=== PATIENT | male | born 1965 | race African-American/Black ===

== ENCOUNTER 2016-07-08 01:06 | Emergency (ER) | payer SELFPAY ==
[~2016-07-08] VITALS: Ht 180.3 cm; Wt 63.5 kg
[2016-07-08 01:08] VITALS: BP 106/73
== END 2016-07-08 04:17 | disposition left against medical advice (07) ==
LOC: ED 04:11
DX: M54.5 Low back pain (principal)

== ENCOUNTER 2016-07-29 03:18 | Emergency (ER) | payer SELFPAY ==
[~2016-07-29] VITALS: Ht 180.3 cm; Wt 70.0 kg
[2016-07-29 03:25] VITALS: BP 139/87
== END 2016-07-29 06:25 | disposition home or self-care (01) ==
LOC: ED 06:19
DX: F10.120 Alcohol abuse with intoxication, uncomplicated (principal)
CPT/HCPCS: 99283

== ENCOUNTER 2016-07-30 22:59 | Emergency (ER) | payer SELFPAY ==
[~2016-07-30] VITALS: Ht 180.3 cm; Wt 56.0 kg
[2016-07-31 07:50] VITALS: BP 127/65
== END 2016-07-31 07:52 | disposition home or self-care (01) ==
LOC: ED 23:59
DX: F10.220 Alcohol dependence with intoxication, uncomplicated (principal)
CPT/HCPCS: 99283